=== PATIENT | male | born 1955 | race Hispanic/Latino ===

== ENCOUNTER 2024-08-18 20:45 | Emergency (ER) | payer OTHER ==
[~2024-08-18] VITALS: Ht 175.3 cm; Wt 99.3 kg
--- NOTE | 2024-08-18 21:07 | ERN ---
ED Note History of Present Illness Stated Complaint: GENERAL BODY WEAKNESS, BACK PAIN Chief Complaint: Weakness Time Seen by MD: 21:00 Time Seen by Midlevel: 21:05 Dictation: Mr Frey is a 69-year-old gentleman with history of obesity, chronic back p ain, and hypertension who was transported via ambulance this evening for evaluation of back pain. Patient states he was working outside when he developed general body weakness and severe back pain. He denies fall/trauma. He denies fever, chills, shortness of breath, cough, chest pain, palpitations, edema, abdominal pain, nausea, vomiting, hematemesis, constipation, diarrhea, melena, hematochezia, dysuria, headache, dizziness, or focal weakness/paresthesia UPDATE: He also complains of a thick mucousy discharge both eyes Allergies: Coded Allergies: No Known Allergies (Unverified Allergy, Unknown, 08/18/24) Emergency Care TAX EVALUATOR: IV Past Medical History Past Medical History: Hypertension Surgical History: Other Surgical History Other: BACK SURGERY PSYCH History: no pertinent psych hx Social History: Negative, Lives with family RN Note Reviewed/Agreed w/PFSH: Yes Review of System Dictation REVIEW OF SYSTEMS: CONSTITUTIONAL: Patient denies fevers, chills, sweats and weight changes. Reports fatigue and general weakness. EYES: Patient denies any visual symptoms. EARS, NOSE, AND THROAT: No difficulties with hearing. No symptoms of rhinitis or sore throat. CARDIOVASCULAR: Patient denies chest pains, palpitations, orthopnea and paroxysmal nocturnal dyspnea. RESPIRATORY: No dyspnea on exertion, no wheezing or cough. GI: No nausea, vomiting, diarrhea, constipation, abdominal pain, hematochezia or melena. : No urinary hesitancy or dribbling. No nocturia or urinary frequency. No abnormal urethral discharge. MUSCULOSKELETAL: Reports back pain. NEUROLOGIC: No chronic headaches, no seizures. Patient denies numbness, tingling or weakness. PSYCHIATRIC: Patient denies problems with mood disturbance. No problems with anxiety. ENDOCRINE: No excessive urination or excessive thirst. DERMATOLOGIC: Patient denies any rashes or skin changes. Initial Vital Sign VS Vital Signs Date Time Temp Pulse Resp B/P (MAP) Pulse Ox O2 Delivery O2 Flow Rate FiO2 08/18/24 20:47 100.9 103 16 143/79 97 Room Air 0 08/18/24 21:46 21 Physical Exam Dictation Vital signs: Reviewed. Temp 100.7 Constitutional: Uncomfortable/crying. Head/Face: Normocephalic, atraumatic. Eyes: Periorbital areas with no swelling, redness, or edema. Lids and lashes are normal. Conjunctival injection i present. White thick discharge noted to both eyes. Sclera anicteric. Pupils equal, round, reactive to light. ENT: Pinnas intact and no signs of trauma or erythema. Ear canals clear and no discharge. TMs no erythema. No nasal discharge or bleeding noted. Oropharynx with no exudate, redness, swelling, masses, exudates, or evidence of obstruction. Uvula midline. Mucous membranes moist. Neck: Trachea midline, no masses palpated, and no cervical lymphadenopathy. No swelling. Supple, full range of motion. Chest/Axilla: No tenderness, no crepitus, no paradoxical movement, no retractions. Cardiovascular: Regular rate, regular rhythm, no murmur, no gallops. Symmetric pulses. No peripheral edema. Normotensive. Twelve lead EKG reflects a sinus rhythm without ST elevation or depression. Respiratory: Respirations even and unlabored. Lung sounds clear; no wheezes, rales or rhonchi. Room air SpO2 97% Gastrointestinal: Inspection is normal. No distention is appreciated. Bowel sounds are normal. No mass or organomegaly . There is no tenderness. No rebound. No rigidity. No voluntary or involuntary guarding. No Stevens's sign. Neurological: Normal speech, gross motor function intact, gross sensory function intact. No focal weakness/Paresthesia. Musculoskeletal/Extremities: All extremities have full range of motion, there is tenderness upon palpation of cervical/thoracic, lumbar spine. Symmetric pulses. He moves all extremities equal and strong 5/5. He has good color, warmth, movement, and sensation to fingers and toes. Integumentary: Intact. Skin is normal color, warm and dry. Cap refill less than 3 seconds. Results (Laboratory/Radiology) Laboratory/Radiology Laboratory Tests Test 08/18/24 21:13 08/18/24 21:28 08/18/24 21:30 08/18/24 23:05 White Blood Count 8.6 K/uL (4.8-10.8) Red Blood Count 4.90 MIL/uL (4.50-6.20) Hemoglobin 14.2 g/dL (14.0-18.0) Hematocrit 41.1 % (42-54) L Mean Corpuscular Volume 83.9 fL (79-99) Mean Corpuscular Hemoglobin 29.0 pg (27.0-33.0) Mean Corpuscular Hemoglobin Concent 34.5 g/dL (32.0-36.0) Red Cell Distribution Width 13.1 % (11.0-15.5) Platelet Count 141 K/uL (130-400) Mean Platelet Volume 10.5 fL (7.5-10.5) Immature Granulocyte % (Auto) 0.3 % (0-1) Neutrophils (%) (Auto) 80.7 % (40.0-77.0) H Lymphocytes (%) (Auto) 11.5 % (21.0-51.0) L Monocytes (%) (Auto) 7.1 % (3.0-13.0) Eosinophils (%) (Auto) 0.1 % (0.0-8.0) Basophils (%) (Auto) 0.3 % (0.0-5.0) Neutrophils # (Auto) 7.0 K/uL (1.8-7.7) Lymphocytes # (Auto) 1.0 K/uL (1.0-4.8) Monocytes # (Auto) 0.6 K/uL (0.1-1.0) Eosinophils # (Auto) 0.01 K/uL (0.00-0.70) Basophils # (Auto) 0.03 K/uL (0.00-0.20) Absolute Immature Granulocyte (auto 0.03 K/uL (0-1) Nucleated Red Blood Cells 0.0 % (0.0-0.19) Sodium Level 143 mmol/L (136-145) Potassium Level 3.7 mmol/L (3.5-5.1) Chloride Level 107 mmol/L (101-111) Carbon Dioxide Level 28 mmol/L (21-32) Blood Urea Nitrogen 15 mg/dL (7-18) Creatinine 1.1 mg/dL (0.5-1.3) Glomerular Filtration Rate Calc 73 mL/min (>90) Random Glucose 128 mg/dL (70-105) H Total Calcium 8.9 mg/dL (8.5-10.1) Total Bilirubin 1.0 mg/dL (0.2-1.0) Direct Bilirubin 0.2 mg/dL (0.0-0.3) Aspartate Amino Transf (AST/SGOT) 21 U/L (10-37) Alanine Aminotransferase (ALT/SGPT) 30 U/L (12-78) Alkaline Phosphatase 87 U/L (50-136) Total Creatine Kinase 55 U/L (21-232) Troponin I High Sensitivity 7 ng/L (4-75) Total Protein 6.9 g/dL (6.0-8.3) Albumin 3.9 g/dL (3.5-5.0) Influenza Type A Antigen Negative For Type A Influenza Type B Antigen Negative For Type B SARS-CoV-2, RNA, NAAT NEGATIVE SARS CoV-2 Urine Color YELLOW (YELLOW) Urine Appearance CLEAR (CLEAR) Urine pH 6.0 (5.0-8.0) Urine Specific [place] 1.024 (1.001-1.031) Urine Protein 10 mg/dL (NEGATIVE) H Urine Glucose (UA) NEGATIVE mg/dL (NEGATIVE) Urine Ketones NEGATIVE mg/dL (NEGATIVE) Urine Occult Blood NEGATIVE (NEGATIVE) Urine Nitrate NEGATIVE (NEGATIVE) Urine Bilirubin NEGATIVE mg/dL (NEGATIVE) Urine Urobilinogen 0.2 mg/dL (0.2-1.0) Urine Leukocyte Esterase NEGATIVE [place]/uL Urine RBC 0-1 /HPF (0-1) Urine WBC 0-1 /HPF (0-1) Urine Bacteria None /HPF (None Seen) Group A Streptococcus Rapid negative (NEGATIVE) Labs Reviewed?: Yes EKG Comment: EKG Interpretation: Time Reviewed:2058 Ventricular rate: 100 bpm SC Interval: 220 ms QRS duration: [address] segment elevation or depression. Clinical impression: Sinus rhythm EKG Reviewed and interpreted by Dr. Petty X-RAY Comment: ATIENT: TYLER FREY MR#: [id number] : 1955 SEX: M AGE: 69 LOCATION: ED ORDER 00 STATUS: REG ER REPORT#: [id number] SERVICE 58 REASON: pain/fall ORDERING PHYSICIAN: CHELSEA CLAY NP PROCEDURE: CERV 2 3VW - CERV SPINE 2-3VWS EXAM: CR Cervical spine, 4 views. CLINICAL HISTORY: Pain. Fall. COMPARISON: None provided. FINDINGS: Mild levocurvature of the cervical spine. Mild osteopenia. Mild spondylosis. The intervertebral disc spaces are maintained. Normal vertebral body heights. No acute fracture. The prevertebral soft tissues are within normal limits. The included lungs are clear. IMPRESSION: No acute bony abnormality is evident. Mild levocurvature of the cervical spine. Mild osteopenia. Mild spondylosis. /[place] DICTATED BY: NINA ORTIZ Jr., MD DATE: 08/19/24126 ELECTRONICALLY SIGNED BY: NINA ORTIZ Jr., MD DATE: 08/19/24126 PATIENT: TYLER FREY MR#: [id number] : 1955 SEX: M AGE: 69 LOCATION: [facility] ORDER 00 STATUS: [facility] REPORT#: [id number] SERVICE 58 REASON: pain/fall ORDERING PHYSICIAN: CHELSEA CLAY NP PROCEDURE: LUMB 2 3VW - LUMBAR SPINE 2-3VWS EXAM: CR Lumbar Spine, 3 views. CLINICAL HISTORY: Pain. Fall. COMPARISON: None provided. FINDINGS: Age-indeterminate compression fracture of the T11, T12, and L1 vertebral bodies with about 10% to 20% height reduction, more pronounced at the T12. The T12 vertebral body was not completely included in the radiograph of the thoracic spine from the same date. The remaining vertebral body heights are well-maintained. Mild osteopenia. Moderate spondylosis and degenerative disc space narrowing at multiple levels. Soft tissues are within normal limits. IMPRESSION: Age-indeterminate compression fracture of the T11, T12, and L1 vertebral bodies with about 10% to 20% height reduction, more pronounced at the T12. Recommend MRI of the thoracic and lumbar spines for an optimal evaluation. /[place] DICTATED BY: NINA ORTIZ Jr., MD DATE: 08/19/24129 ELECTRONICALLY SIGNED BY: NINA ORTIZ Jr., MD DATE: 08/19/24129 PATIENT: TYLER FREY MR#: [id number] : 1955 SEX: M AGE: 69 LOCATION: [facility] ORDER 00 STATUS: REG [facility] REPORT#: [id number] SERVICE REASON: pain/fall ORDERING PHYSICIAN: CHELSEA CLAY NP PROCEDURE: THOR 2VW - THORACIC SPINE 2VWS EXAM: CR Thoracic Spine, 3 views. CLINICAL HISTORY: Pain. Fall. COMPARISON: None provided. FINDINGS: Presumed age-indeterminate compression fracture with 10% height reduction at the T11 vertebral body. The remaining vertebral body heights are maintained. Thoracic alignment is within normal limits. Mild osteopenia. Mild spondylosis and diffuse idiopathic skeletal hyperostosis. Normal intervertebral disc spaces. Soft tissues are within normal limits. IMPRESSION: FINDINGS: Presumed age-indeterminate compression fracture with 10% height reduction at the T11 vertebral body. Recommend MRI of the thoracic spine for further evaluation. Mild osteopenia. Mild spondylosis and diffuse idiopathic skeletal hyperostosis. /[place] DICTATED BY: NINA ORTIZ Jr., MD DATE: 08/19/24127 ELECTRONICALLY SIGNED BY: NINA ORTIZ Jr., MD DATE: 08/19/24127 ED Course ED Course Orders Procedure Category Date Status Time Cbc With Differential LAB 08/18/24 Complete 21:05 Basic Metabolic Panel LAB 08/18/24 Complete 21:05 Creatine Kinase, Total LAB 08/18/24 Complete 21:05 Hepatic Function Panel LAB 08/18/24 Complete 21:05 Urinalysis Profile LAB 08/18/24 Complete 21:05 Troponin I High LAB 08/18/24 Complete Sensitivity 21:05 12 Lead Ekg Tracing- EKG 08/18/24 Logged Technical 21:05 0.9%Nacl 1000ml (Ns PHA 08/18/24 Complete 1000ml) 21:30 Influenza Type A & B, LAB 08/18/24 Complete Rapid 21:07 Covid Rna Naat LAB 08/18/24 Complete 21:07 Ondansetron 4mg Inj PHA 08/18/24 Complete (Zofran 4mg Inj) 21:30 Hydromorphone 0.5mg PHA 08/18/24 Complete Syg (Dilaudid 0.5mg 21:30 Rapid (Group A Strep) LAB 08/18/24 Complete 22:59 Cerv Spine 2-3vws RAD 08/18/24 Resulted 22:59 Thoracic Spine 2vws RAD 08/18/24 Resulted 22:59 Ketorolac PHA 08/18/24 Complete Tromethamine 15mg/Ml 23:00 Lumbar Spine 2-3vws RAD 08/18/24 Resulted 22:59 Current Medications Medications (Trade) Dose Ordered Sig/Gamaliel Route PRN Reason Start Time Stop Time Status Last Admin Dose Admin Hydromorphone HCl (DiLAUDid 0.5MG INJ) 0.5 mg ONCE ONCE IVP 08/18/24 21:30 08/18/24 21:31 DC 08/18/24 21:40 Ketorolac Tromethamine (toRADol) 15 mg ONCE ONCE IM 08/18/24 23:00 08/18/24 23:04 DC 08/18/24 23:09 Ondansetron HCl (zoFRAN 4MG INJ) 4 mg ONCE ONCE IVP 08/18/24 21:30 08/18/24 21:31 DC 08/18/24 21:41 Sodium Chloride 1,000 ml @ 0 mls/hr ONCE ONCE IV 08/18/24 21:30 08/18/24 21:31 DC 08/18/24 21:40 Vital Signs Date Time Temp Pulse Resp B/P (MAP) Pulse Ox O2 Delivery O2 Flow Rate FiO2 08/19/24 00:10 98.4 78 18 123/70 98 Room Air* 0 08/18/24 23:15 100.2 96 18 142/79 96 Room Air* 0 08/18/24 22:30 100.6 78 18 155/78 96 Room Air* 0 08/18/24 21:46 79 18 144/79 98 Room Air* 0 08/18/24 20:47 100.9 103 16 143/79 97 Room Air 0 Vital signs stable. Noted low-grade temp. Normotensive with room air SpO2 97- 98%. Patient arrived crying with complaints of severe back pain 11/21. Twelve lead EKG reflects a sinus rhythm without ST elevation or depression. Laboratory findings as noted below. No elevation of WBCs. HCT 41.1, glucose 128. UA is clear. Troponin negative. Influenza A/B and COVID are negative. He received doses Zofran, Dilaudid, and Decadron as well as NS 1000 mL IV as bolus. Back pain markedly improved. Patient ambulatory. He does also complain of redness with white mucousy discharge from both eyes. He received a erythromycin ointmen t. He had x-rays of the C-spine, T-spine, and L-spine which revealed osteopenia osteoarthritis as well as a age indeterminate compression fracture with 10% height reduction of the T11 vertebral body with recommendations for MRI which can be performed outpatient. Findings were discussed with patient and his significant other and all questions were answered. Medical Decision Making MDM MDM: Differential diagnosis: Dehydration, heat related injury, UTI, dehydration, ACS, spinal fracture Rationale: Tests considered and ordered secondary to shared decision making include: Lab, imaging Previous outside records reviewed: Old ER visits. Risk of complication and/or morbidity or mortality of patient management: None Medications-Per medication reconciliation Need for hospitalization: Patient does not meet criteria for hospitalization. Need for emergency major/minor surgery: No There are no social concerns with this patient. Prescription drug management Prescriptions will include symptomatic care Patient's prior external medical records from other ER visits were reviewed by me as indicated. Prior testing and results from previous visits were reviewed. Prior tests were taken into account with medical decision making and resource utilization, independent historian/historians were used to obtain complete medical history. I independently interpreted the test that were performed, results were reviewed by me and considered findings on radiology if ordered. Medical management and examination interpretation discussions were had by me with other qualified healthcare professionals as indicated for the patient's care. DX & DISP Disposition: Discharge Departure Impression: Primary Impression: acute exacerbation chronic back pain Additional Impressions: Conjunctivitis, Heat related injury, Mild dehydration, Mild dehydration Condition: Stable Scripts Erythromycin Base (Erythromycin) 5 Mg/Gram (0.5 %) Oint...g. 1 APPL OP TID for 7 Days, #3.5 GM 0 Refills apply 1 cm ribbon into the lower conjunctival sac Prov: CHELSEA CLAY NP 08/19/24 Cyclobenzaprine HCl (Cyclobenzaprine HCl) 5 Mg Tablet 1 TAB PO HSPRN PRN for muscle spasms for 7 Days, #7 TAB 0 Refills Prov: CHELSEA CLAY NP 08/19/24 Ketorolac Tromethamine (Toradol) 10 Mg Tab 1 TAB PO TID for pain for 5 Days, #15 TAB 0 Refills Prov: CHELSEA CLAY NP 08/19/24 Additional Instructions: Rest. Drink plenty of fluids; especially when working outdoors. Gentle [id number] exercises. May use cool or warm packs as needed. You will need to follow up with your primary care provider for additional imaging and/or referral to physical therapy or specialists. May need MRI outpatient. May take Toradol 3 times a day as needed for discomfort. May take Flexeril at bedtime as needed for muscle spasms. Continue with erythromycin ointment. Apply 1/2 inch ribbon to affected eyes 4 times daily for seven days. Wash hands frequently. Return to the emergency department for any worsening of symptoms or concerns. Time of Disposition: 01:17 CHELSEA CLAY NP Aug 18, 2024 21:07
[2024-08-18 21:21] LABS: IMMATURE GRANULOCYTE ABSOLUTE 0.03 K/uL (0-1); NUCLEATED RED BLOOD CELLS 0.0 % (0.0-0.19); PLATELET COUNT (AUTO) 141 K/uL (130-400); RED BLOOD CELL COUNT(AUTO) 4.90 MIL/uL (4.50-6.20); RED CELL DISTRIBUTION WIDTH 13.1 % (11.0-15.5); WHITE BLOOD COUNT (AUTO) 8.6 K/uL (4.8-10.8)
[2024-08-18 21:37] LABS: ASPARTATE AMINOTRANSFERASE 21.0 U/L (10-37); CREATINE KINASE, TOTAL 55.0 U/L (21-232); CREATININE 1.1 mg/dL (0.5-1.3); GLOMERULAR FILTR. RATE CALC 73.0 mL/min (>90); GLUCOSE,RANDOM 128.0 mg/dL (70-105); SODIUM SERUM 143.0 mmol/L (136-145); TOTAL PROTEIN, SERUM 6.9 g/dL (6.0-8.3); UREA NITROGEN, BLOOD 15.0 mg/dL (7-18)
[2024-08-18] MEDS: 0.9%NACL 1000ML 1,000 ML IV ONE (21:40)
[2024-08-18 21:44] LABS: APPEARANCE,URINE CLEAR (CLEAR); GLUCOSE, URINE (UA) NEGATIVE (NEGATIVE); LEUKOCYTE ESTERASE ,URINE NEGATIVE Leu/uL (NEGATIVE); NITRATE,URINE NEGATIVE (NEGATIVE); OCCULT BLOOD,URINE NEGATIVE (NEGATIVE)
[2024-08-18 21:45] LABS: ADD UA MICROSCOPIC YES
[2024-08-18 21:54] LABS: SARS-CoV-2, RNA, NAAT NEGATIVE SARS CoV-2 (NEGATIVE)
[2024-08-18 21:59] LABS: INFLUENZA TYPE A Negative For Type A (NEGATIVE); INFLUENZA TYPE B Negative For Type B (NEGATIVE)
--- NOTE | 2024-08-19 00:28 | HMCIMG ---
EXAM: CR Cervical spine, 4 views. CLINICAL HISTORY: Pain. Fall. COMPARISON: None provided. FINDINGS: Mild levocurvature of the cervical spine. Mild osteopenia. Mild spondylosis. The intervertebral disc spaces are maintained. Normal vertebral body heights. No acute fracture. The prevertebral soft tissues are within normal limits. The included lungs are clear. IMPRESSION: No acute bony abnormality is evident. Mild levocurvature of the cervical spine. Mild osteopenia. Mild spondylosis. /[place]
--- NOTE | 2024-08-19 00:29 | HMCIMG ---
EXAM: CR Thoracic Spine, 3 views. CLINICAL HISTORY: Pain. Fall. COMPARISON: None provided. FINDINGS: Presumed age-indeterminate compression fracture with 10% height reduction at the T11 vertebral body. The remaining vertebral body heights are maintained. Thoracic alignment is within normal limits. Mild osteopenia. Mild spondylosis and diffuse idiopathic skeletal hyperostosis. Normal intervertebral disc spaces. Soft tissues are within normal limits. IMPRESSION: FINDINGS: Presumed age-indeterminate compression fracture with 10% height reduction at the T11 vertebral body. Recommend MRI of the thoracic spine for further evaluation. Mild osteopenia. Mild spondylosis and diffuse idiopathic skeletal hyperostosis. /[place]
--- NOTE | 2024-08-19 00:31 | HMCIMG ---
EXAM: CR Lumbar Spine, 3 views. CLINICAL HISTORY: Pain. Fall. COMPARISON: None provided. FINDINGS: Age-indeterminate compression fracture of the T11, T12, and L1 vertebral bodies with about 10% to 20% height reduction, more pronounced at the T12. The T12 vertebral body was not completely included in the radiograph of the thoracic spine from the same date. The remaining vertebral body heights are well-maintained. Mild osteopenia. Moderate spondylosis and degenerative disc space narrowing at multiple levels. Soft tissues are within normal limits. IMPRESSION: Age-indeterminate compression fracture of the T11, T12, and L1 vertebral bodies with about 10% to 20% height reduction, more pronounced at the T12. Recommend MRI of the thoracic and lumbar spines for an optimal evaluation. /[place]
[2024-08-19] MEDS ORDERED: CYCL5TAB3 PO (01:08)
[2024-08-19] MEDS ORDERED: KETO10 PO (01:08)
[2024-08-19] MEDS ORDERED: ERYT1OIN7 OP (01:11)
[2024-08-19] MEDS: ERYTHROMYCIN BASE 0.5% OPHTH OINT 1 GM TUBE OU ONE (01:15)
[2024-08-19 02:41] VITALS: BP 124/68; PULSE 80; RESP 16; TEMP 98.2; O2SAT 99
--- NOTE | 2024-08-19 06:42 | EKG ---
[facility] Test Date: 2024-08-18 Test Time: 20:59:08 Pat Name: TYLER LAZO Department[facility] Patient [place] 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
== END 2024-08-19 02:43 | disposition home or self-care (01) ==
LOC: EDH 20:45
DX: S26.90XA Unspecified injury of heart, unspecified with or without hemopericardium, initial encounter (principal); G89.29 Other chronic pain; M54.50 Low back pain, unspecified; H10.9 Unspecified conjunctivitis; E86.0 Dehydration; I10 Essential (primary) hypertension; Z20.822 Contact with and (suspected) exposure to COVID-19; W18.39XA Other fall on same level, initial encounter; Y93.89 Activity, other specified; Y92.89 Other specified places as the place of occurrence of the external cause; Y99.8 Other external cause status
CPT/HCPCS: 99283; 96374; 87635; 96375; 96372 ×2; 82550; 80076; 84484; 80048; 85025; 87880; 87804 ×2; 81001; 36415; 72040; 72100; 72070; 93005; J1885; J7030; J2405; J1171; J1100